=== PATIENT | male | born 1950 | race Two or more races ===

== ENCOUNTER 2021-03-25 14:02 | Emergency (ER) | payer MEDICAID, MEDICARE ==
[~2021-03-25] VITALS: Ht 188 cm; Wt 99.7 kg
[2021-03-25] MEDS ORDERED: VALI5TAB PO (14:12)
[2021-03-25] MEDS ORDERED: FLOM0.4C39 PO (14:12)
[2021-03-25] MEDS ORDERED: AMLO1TAB24 PO (14:12)
[2021-03-25] MEDS ORDERED: LUNE3TAB36 PO (14:12)
[2021-03-25] MEDS ORDERED: LISI10TA22 PO (14:12)
[2021-03-25] MEDS ORDERED: REME15TA2 PO (14:12)
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
[2021-03-25 21:07] VITALS: BP 119/65
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
== END 2021-03-25 21:09 | disposition home or self-care (01) ==
LOC: M ED 14:02
DX: S06.0X0A Concussion without loss of consciousness, initial encounter (principal); S05.12XA Contusion of eyeball and orbital tissues, left eye, initial encounter; Y04.2XXA Assault by strike against or bumped into by another person, initial encounter; C22.9 Malignant neoplasm of liver, not specified as primary or secondary; G35 Multiple sclerosis; F41.9 Anxiety disorder, unspecified; I10 Essential (primary) hypertension; F32.A Depression, unspecified; Y92.009 Unspecified place in unspecified non-institutional (private) residence as the place of occurrence of the external cause; Y93.9 Activity, unspecified; Y99.9 Unspecified external cause status; Z79.899 Other long term (current) drug therapy

== ENCOUNTER → 2021-07-01 | Outpatient (CLI) | payer OTHER, MEDICAID ==
[~2021-07-01] MED LIST: AMLO1TAB24 PO; FLOM0.4C39 PO; LISI10TA22 PO; LUNE3TAB36 PO; REME15TA2 PO; VALI5TAB PO
== END ==
LOC: M RAD 13:55
PROVIDERS: ATTEND Physical Medicine & Rehabilitation
DX: G12.20 Motor neuron disease, unspecified (principal); H60-H95 Diseases of the ear and mastoid process

== ENCOUNTER → 2021-07-16 | Outpatient (CLI) | payer OTHER, MEDICAID ==
[~2021-07-16] MED LIST changes: +GASTROGRAFIN SOLUTION 30ML (Q9963) As Ordered ONE; +ISOVUE-370 76% 100ML VIAL As Ordered ONE
== END ==
LOC: M RAD 10:45
PROVIDERS: ATTEND Nurse Practitioner Adult Health
DX: C22.0 Liver cell carcinoma (principal)
CPT/HCPCS: 71260; 74177; Q9963; Q9967

== ENCOUNTER → 2022-06-12 | Outpatient (CLI) | payer OTHER, MEDICAID ==
[~2022-06-12] MED LIST changes: -GASTROGRAFIN SOLUTION 30ML (Q9963) As Ordered ONE; -ISOVUE-370 76% 100ML VIAL As Ordered ONE
== END ==
LOC: M PLARAD 09:54
PROVIDERS: ATTEND Psychiatry & Neurology Neurology
DX: G35 Multiple sclerosis (principal)

== ENCOUNTER → 2022-06-15 | Outpatient (CLI) | payer OTHER, MEDICAID ==
[~2022-06-15] MED LIST changes: +PROHANCE 279.3MG/ML 15ML VIAL As Ordered ONE; +PROHANCE 279.3MG/ML 5ML VIAL As Ordered ONE
== END ==
LOC: M RAD 10:16
PROVIDERS: ATTEND Psychiatry & Neurology Neurology
DX: G35 Multiple sclerosis (principal)
CPT/HCPCS: 70553; A9576